=== PATIENT | female | born 1995 | race African-American/Black ===

== ENCOUNTER 2016-07-14 16:23 | Outpatient (CLI) | payer MEDICAID ==
[2016-07-14 17:05] LABS: APPEARANCE,URINE CLOUDY; BILIRUBIN,URINE NEGATIVE (NEGATIVE); GLUCOSE, URINE NEGATIVE (NEGATIVE); KETONES,URINE NEGATIVE (NEGATIVE); LEUKOCYTE ESTERASE,URINE LARGE (NEGATIVE); NITRITE,URINE NEGATIVE (NEGATIVE); PROTEIN,URINE NEGATIVE (NEGATIVE); URINE SPECIFIC GRAVITY 1.017; UROBILINOGEN,URINE NEGATIVE mg/dL (<2.0)
[2016-07-14 17:22] LABS: URINE BARBITURATES SCREEN NEGATIVE; URINE METHADONE SCREEN NEGATIVE; URINE PHENCYCLIDINE SCREEN NEGATIVE
[2016-07-14] MEDS ORDERED: FLUCONAZOLE 100 MG TABLET PO ONE (17:33)
[2016-07-14] MEDS ORDERED: FLUCONAZOLE 100 MG TABLET ONE (17:46)
[2016-07-14 20:55] LABS: CHLAM PCR NOT DETECTED (NOT DETECT)
--- NOTE | 2016-07-15 04:45 | L&D Current Admission ---
Current Admit Datetime Report Generated by [facility]: 07/15/2016 04:45 Chief Complaint: vaginal discharge with bright red spotting, sore vaginal area with swelling (07/14/2016 16:50:Margie Gomez RN)
--- NOTE | 2016-07-15 04:45 | L&D Discharge Summary ---
OB Discharge Summary Datetime Report Generated by CPN: 07/15/2016 04:45 DISCHARGE DIAGNOSIS Diagnosis/Symptoms: Other Diagnoses/Symptoms Other: Yeast infection Treatment/Procedures Other: rocephin 1gm Gestation: 30.3 Number of Babies in Womb: 1 Parity: 0 DIET/ACTIVITY/RESTRICTIONS Diet: Regular Activity: Normal Activity TEACHING/INSTRUCTIONS/REFERRALS Instructions Given To: patient and significant othwer Instructions Understood: Patient Verbalized Understanding; Support Person Verbalized Understanding Referrals: None Educational Materials- Other: yeast infection and kick counts DISCHARGE INFORMATION Discharged AMA: No Discharge Date/Time: 07/14/2016 17:55 Discharged To: Home Discharge Provider Name: Dr. Jurado Accompanied By: significant other Discharge Method: Ambulatory Condition: Stable FOLLOW UP INFORMATION Follow Up With: [facility] Follow Up On: As Scheduled Follow Up Phone Number: [facility] Department - Comments: Instructed patient to initiate OB care jaime. Patient states she [facility] on . GENERAL INSTR-CALL PROVIDER IF: Contractions: Contractions or cramps become more frequent than 8 in one hour or 4 in 20 minutes; Regular painful contractions every 5 minutes or less for one hour. Time your contractions from the beginning of one to the beginning of the next Pressure: Pressure in your vagina or lower abdomen that may feel like the baby is pushing down Period Like Cramps: Period-like cramps or low dull backache that may come and go Cramps/Diarrhea: Abdominal cramps that may be accompanied by diarrhea Gush of Fluid/Blood: Gush of fluid or blood from your vagina (it is normal to have spotting after vaginal exam or intercourse) Vaginal Discharge: Change in the type or amount of vaginal discharge Decreased Movement: Your baby is not moving as much as usual- 4 movements in 1 hour after drinking and resting on side Temperature: Temperature greater than 100.0(F) orally
--- NOTE | 2016-07-15 04:45 | L&D General Admission ---
General Admit Datetime Report Generated by [facility]: 07/15/2016 04:45 Baby, Number in Womb: 1 (07/14/2016 17:54:Margie Gomez RN) Height (in): 66 (07/14/2016 16:42:QS system process) Medication Allergies: No Known Allergies (07/14/2016) (07/14/2016 16:42:QS system process)
--- NOTE | 2016-07-15 04:45 | L&D Flow Sheet ---
LD Flowsheet Datetime Report Generated by CPN: 07/15/2016 04:45 Datetime: 07/14/2016 17:49 Monitor Mode: External; Palpation (Margie Gomez RN) Frequency (min): none (Margie Gomez, TA) Resting Tone (Palpate): Relaxed (Margie Gomez, TA) Contraction Comments: uterine irritability. patient denies feeling contractions (Margie Gomez, TA) Monitor Mode: External US (Margie Gomez, TA) FHR Baseline Rate : 135 (Margie Gomez RN) FHR Baseline Changes: No Baseline Change (Margie Gomez, RN) Variability: Moderate 6-25 bpm (Margie Gomez, RN) Decelerations: None (Margie Gomez, TA) Comments: appropriate for gestational age (Margie Gomez, TA) Datetime: 07/14/2016 17:48 Medication Comments: Diflucain 150 mg po (Margie Gomez RN) Datetime: 07/14/2016 17:35 Provider Notified (Name): Dr. Jurado provided orders to give patient Diflucain 150 mg po for yeast infection and discharge patient home to self care. (Margie Gmoez RN) Datetime: 07/14/2016 17:30 Monitor Mode: External; Palpation (Margie Gomez RN) Frequency (min): none (Margie Gomez RN) Resting Tone (Palpate): Relaxed (Margie Gomez RN) Contraction Comments: patient denies feeling contractions. no contractions noted (Magrie Gomez RN) Monitor Mode: External US (Margie Gomez RN) FHR Baseline Rate : 135 (Margie Gomez RN) FHR Baseline Changes: No Baseline Change (Margie Gomez RN) Variability: Moderate 6-25 bpm (Margie Gomez RN) Accelerations: 15X15 (Margie Gomez RN) Decelerations: None (Margie Gomez RN) Provider Reviewed Strip: Yes (Margie Gomez RN) Communication: RN at Bedside; Provider at Bedside (Margie Gomez RN) Provider Notified (Name): Dr. Jurado at bedside performing speculum exam (Margie Gomez RN) Datetime: 07/14/2016 17:20 Stage of : Antepartum (Margie Gomez RN) NBP Sys/Tracie/Mean (mmHg): 102 (QS system process) : 51 (QS system process) : 72 (QS system process) Pulse: 86 (QS system process) Respirations: 14 (Margie Gomez RN) LaborFlag: Antepartum (QS system process) Datetime: 07/14/2016 17:17 Communication: Call/Page Placed to Provider (Margie Gomez RN) Provider Notified (Name): Dr. Jurado (Margie Gomez RN) Notification Reason: Status Update; Status; Uterine Activity; Pain; Bleeding; Lab/Diagnostic Study (Margie Gomez RN) Communication Comments: Notified of OB history, chief complaint of vaginal soreness, swelling and scant bright red bleeding x1, urinalysis results, stable vital signs, and appropriate FHT for gestational age. Provider states she is on way to unit to assess patient (Margie Gomez RN) Datetime: 07/14/2016 17:02 Stage of : Antepartum (Margie Gomez RN) NBP Sys/Tracie/Mean (mmHg): 114 (QS system process) : 55 (QS system process) : 76 (QS system process) Pulse: 94 (QS system process) Respirations: 16 (Margie Gomez RN) LaborFlag: Antepartum (QS system process) Datetime: 07/14/2016 17:00 Monitor Mode: External; Palpation (Margie Gomez RN) Frequency (min): none (Margie Gomez RN) Resting Tone (Palpate): Relaxed (Margie Gomez RN) Contraction Comments: patient denies feeling contractions. no contractions noted (Margie Gomez RN) Monitor Mode: External US (Margie Gomez RN) FHR Baseline Rate : 140 (Margie Gomez RN) FHR Baseline Changes: No Baseline Change (Margie Gomez RN) Variability: Moderate 6-25 bpm (Margie Gomez RN) Accelerations: 15X15 (Margie Gomez RN) Decelerations: None (Margie Gomez RN) Comments: repors positive movement. Appropriate FHT strip for gestational age (Margie Gomez RN) Datetime: 07/14/2016 16:50 Monitor Interventions for UA: [place] Adjusted (Margie Gomez RN) Monitor Mode: External US (Margie Gomez RN) Monitor Interventions for FHR: Ultrasound Adjusted (Margie Gomez RN) Pain Scale: 2 (Margie Gomez RN) Pain Presence: Constant (Margie Gomez, TA) Pain Type: sore (Margie Gomez RN) Pain Location: vagina (Margie Gomez RN) Pain Goal: 1 (Margie Gomez RN) Pain Relief Measures: Comfort Measures (Margie Gomez, AT) Vaginal Bleeding: Scant (Margie Gomez, TA) Level of Consciousness: Fully Conscious (Margie Gomez RN) DTR's/Clonus: DTRs 2+; No Clonus (Margie Gomez RN) Headache: Denies (Margie Gomez RN) Breath Sounds, Left: Clear and Equal (Margie Gomez RN) Breath Sounds, Right: Clear and Equal (Margie Gomez, TA) Nausea/Vomiting: Denies (Margie Gomez RN) RUQ Epigastric Pain: Denies (Margie Gomez, TA) Oxygen Method: Room Air (Margie Gomez, RN) Patient Position/Activity: Right Lateral; Low Fowlers (Margie Gomez, RN) Comfort Measures: Family Support (Margie Gomez, RN) I/O Interventions: Clear Liquids Given (Margie Gomez, RN) Instructional Method: Verbal; Patient Instructed; Family/Support Person Instructed; Verbalized Understanding (Margie Gomez, RN) Plan of Care: Plan of Care Discussed (Margie Gomez, RN) Unit Routine: [place] to Room; Call Pedroza; Bed; Visiting Policy; Waiting Areas; Unit Personnel; Handwashing; Flu/Illness Precautions; Monitoring; IV Pumps; Safety/Fall Risk Prevention; Diet/Nutrition Services; Bathroom Privileges (Margie Gomez, TA) Pain Management: Pain Scale/Goals; Comfort Measures (Margie Gomez, TA) Related: Common Discomforts of ; Maternal Physical Changes; Maternal Emotional Changes; Nutrition; Hydration; Activity and Rest (Margie Gomez, TA) LaborFlag: Labor (QS system process) Datetime: 07/14/2016 16:46 Stage of : Labor (Margie Gomez, TA)
--- NOTE | 2016-07-15 04:45 | L&D Admission Assessment ---
LD ADM ASMT Datetime Report Generated by CPN: 07/15/2016 04:45 Assessment Type: Admission Assessment (07/14/2016 16:50:Margie Gomez RN) Weight (lb): 119 (07/14/2016 16:42:QS system process) Weight (kg): 54.1 (07/14/2016 16:42:QS system process) BMI: 19.2 (07/14/2016 16:42:QS system process) Pain Scale: 2 (07/14/2016 16:50:Margie Gomez RN) Pain Presence: Constant (07/14/2016 16:50:Margie Gomez RN) Pain Type: sore (07/14/2016 16:50:Margie Gomez RN) Pain Location: vagina (07/14/2016 16:50:Margie Gomez RN) Pain Goal: 1 (07/14/2016 16:50:Margie Gomez RN) Pain Related to Contraction: No (07/14/2016 16:50:Margie Gomez RN) Frequency (min): none (07/14/2016 17:49:Margie Gomez RN) Frequency (min): none (07/14/2016 17:30:Margie Gomez RN) Frequency (min): none (07/14/2016 17:00:Margie Gomez RN) Resting Tone [place]: Relaxed (07/14/2016 17:49:Margie Gomez RN) Resting Tone [place]: Relaxed (07/14/2016 17:30:Margie Gomez RN) Resting Tone [place]: Relaxed (07/14/2016 17:00:Margie Gomez RN) Contraction Comments: uterine irritability. patient denies feeling contractions (07/14/2016 17:49:Margie Gomez RN) Contraction Comments: patient denies feeling contractions. no contractions noted (07/14/2016 17:30:Margie Gomez RN) Contraction Comments: patient denies feeling contractions. no contractions noted (07/14/2016 17:00:Margie Gomez RN) Level of Consciousness: Fully Conscious (07/14/2016 16:50:Margie Gomez RN) DTR's/Clonus: DTRs 2+; No Clonus (07/14/2016 16:50:Margie Gomez RN) Headache: Denies (07/14/2016 16:50:Margie Gomez RN) Dizziness: No (07/14/2016 16:50:Margie Gomez RN) Blurred Vision: No (07/14/2016 16:50:Margie Gomez RN) Extremity Numbness/Tingling : None (07/14/2016 16:50:Margie Gomez RN) Extremity Movement: Full Range of Motion (07/14/2016 16:50:Margie Gomez RN) Heart Rhythm: Regular (07/14/2016 16:50:Margie Gomez RN) Nailbeds: [place] (07/14/2016 16:50:Margie Gomez RN) Capillary Refill: Less than 3 Seconds (07/14/2016 16:50:Margie Gomez RN) Lower Extremities Edema: None (07/14/2016 16:50:Margie Gomez RN) Lower Extremities Edema Degree: None (07/14/2016 16:50:Margie Gomez RN) Upper Extremities Edema: None (07/14/2016 16:50:Margie Gomez RN) Upper Extremities Edema Degree: None (07/14/2016 16:50:Margie Gomez RN) Facial Edema: None (07/14/2016 16:50:Margie Gomez RN) Alicia's Sign Left Leg: Negative (07/14/2016 16:50:Margie Gomez RN) Alicia's Sign Right Leg: Negative (07/14/2016 16:50:Margie Gomez RN) DVT Risk Age: Age less than 41 years (07/14/2016 16:50:Margie Gomez RN) DVT Risk BMI: BMI<31 (07/14/2016 16:50:Margie Gomez RN) DVT Risk Surgery: None Applicable (07/14/2016 16:50:Margie Gomez RN) DVT Risk Other: Women Only- or (<1 month) (07/14/2016 16:50:Margie Gomez RN) DVT Risk Total: 1 (07/14/2016 16:50:QS system process) DVT Risk Text: Low Risk (<10%) No specific measures, early ambulation (07/14/2016 16:50:QS system process) Respiratory Effort: Unlabored; Regular Rhythm (07/14/2016 16:50:Margie Gomez RN) Breath Sounds, Left: Clear and Equal (07/14/2016 16:50:Margie Gomez RN) Breath Sounds, Right: Clear and Equal (07/14/2016 16:50:Margie Gomez RN) Cough Productivity: None (07/14/2016 16:50:Margie Gomez RN) Nausea/Vomiting: Denies (07/14/2016 16:50:Margie Gomez RN) Bowel Sounds: Normoactive; All Quadrants (07/14/2016 16:50:Margie Gomez RN) RUQ Epigastric Pain: Denies (07/14/2016 16:50:Margie Gomez RN) Bowel Patterns: Soft, Formed Stool (07/14/2016 16:50:Margie Gomez RN) Hemorrhoids: None (07/14/2016 16:50:Margie Gomez RN) Diet Type: Regular diet (07/14/2016 16:50:Margie Gomez RN) Last Meal: 07/14/2016 15:15 (07/14/2016 16:50:Margie Gomez RN) Bladder: Nondistended (07/14/2016 16:50:Margie Gomez RN) Frequency of Urination: No (07/14/2016 16:50:Margie Gomez RN) Urination Burning: No (07/14/2016 16:50:Margie Gomez RN) CVA Tenderness: No (07/14/2016 16:50:Margie Gomez RN) Vaginal Bleeding: Scant (07/14/2016 16:50:Margie Gomez RN) Vaginal Discharge Amount: Small (07/14/2016 16:50:Margie Gomez RN) Vaginal Discharge Color: White (07/14/2016 16:50:Margie Gomez RN) Vaginal Discharge Odor: Non-Odorous (07/14/2016 16:50:Margie Gomez RN) Vaginal Discharge Character: Thin (07/14/2016 16:50:Margie Gomez RN) Skin Color: Normal for Race (07/14/2016 16:50:Margie Gomez RN) Skin Temperature: Warm (07/14/2016 16:50:Margie Gomez RN) Skin Moisture: Dry (07/14/2016 16:50:Margie Gomez RN) Cem Scale Sensory Perception: No Impairment- Responds to verbal commands. Has no sensory deficit which would limit ability to feel or voice pain or discomfort (07/14/2016 16:50:Margie Gomez RN) Cem Scale Moisture: Rarely Moist- Skin is usually dry. Linen only requires changing at routine intervals (07/14/2016 16:50:Margie Gomez RN) Cem Scale Activity: Walks Frequently- Walks outside the room at least twice a day and inside room at least every 2 hours during the day. (07/14/2016 16:50:Margie Gomez RN) Cem Scale Mobility: No Limitations- Makes major and frequent changes in position without assistance (07/14/2016 16:50:Margie Gomez RN) Cem Scale Nutrition: Excellent- Eats most of every meal. Never refuses a meal. Usually eats a total of 4 or more servings of meat and dairy products. Occasionally eats between meals. Does not require supplementation (07/14/2016 16:50:Margie Gomez RN) Cem Scale Friction and Shear: No Apparent Problem- Moves in bed and in chair independently and has sufficient muscle strength to lift up completely during move. Maintains good position in bed or chair at all times (07/14/2016 16:50:Margie Gomez RN) Cem Scale Total: 23 (07/14/2016 16:50:QS system process) Cem Scale Risk: No Risk of Pressure Ulcer Noted at this Time (07/14/2016 16:50:QS system process) Family Support: Significant Other supportive, at bedside frequently; Family supportive (07/14/2016 16:50:Margie Gomez RN) Emotional State: Calm/Relaxed (07/14/2016 16:50:Margie Gomez RN) Call [place] Within Reach: Yes (07/14/2016 16:50:Margie Gomez RN) Side Rails Up: Yes (07/14/2016 16:50:Margie Gomez RN) Bed Wheels Locked: Yes (07/14/2016 16:50:Margie Gomez RN) Arm Bands Present: Yes (07/14/2016 16:50:Margie Gomez RN) Isolation: [place] (07/14/2016 16:50:Margie Gomez RN) Fall Risk History of Falling: (0) No (07/14/2016 16:50:Margie Gomez RN) Fall Risk Secondary Diagnosis: (0) No (07/14/2016 16:50:Margie Gomez RN) Fall Risk Ambulatory Aid: (0) None/Bedrest/Wheelchair/Nurse Assist (07/14/2016 16:50:Margie Gomez RN) Fall Risk IV Therapy: (0) No (07/14/2016 16:50:Margie Gomez RN) Fall Risk Gait: (0) Normal/Bedrest/Immobile (07/14/2016 16:50:Margie Gomez RN) Fall Risk Mental Status: (0) Oriented to Own Ability (07/14/2016 16:50:Margie Gomez RN) Fall Risk Score: 0 (07/14/2016 16:50:QS system process) Fall Risk Score Definition: No Risk: No action required (07/14/2016 16:50:QS system process) Recent Exp Communicable Disease: No (07/14/2016 16:50:Margie Gomez RN) Cough or Fever: No (07/14/2016 16:50:Margie Gomez RN) Foreign Travel Past 10 Days: No (07/14/2016 16:50:Margie Gomez RN) Open Wounds or Sores: No (07/14/2016 16:50:Magrie Gomez RN) Prior Antibiotic Resistance Tx: No (07/14/2016 16:50:Margie Gomez RN) Cultures Obtained: Not Applicable (07/14/2016 16:50:Margie Gomez RN) Isolation Initiated: No (07/14/2016 16:50:Margie Gomze RN) Pt/Family Education: Not Applicable (07/14/2016 16:50:Margie Gomez RN) FHR Baseline Rate (bpm) Baby A: 135 (07/14/2016 17:49:Margie Gomez RN) FHR Baseline Rate (bpm) Baby A: 135 (07/14/2016 17:30:Margie Gomez RN) FHR Baseline Rate (bpm) Baby A: 140 (07/14/2016 17:00:Margie Gomez RN) Variability Baby A: Moderate 6-25 bpm (07/14/2016 17:49:Margie Gomez RN) Variability Baby A: Moderate 6-25 bpm (07/14/2016 17:30:Margie Gomez RN) Variability Baby A: Moderate 6-25 bpm (07/14/2016 17:00:Margie Gomez RN) Accelerations Baby A: 15X15 (07/14/2016 17:30:Margie Gomez RN) Accelerations Baby A: 15X15 (07/14/2016 17:00:Margie Gomez RN) Decelerations Baby A: None (07/14/2016 17:49:Margie Gomez RN) Decelerations Baby A: None (07/14/2016 17:30:Margie Gomez RN) Decelerations Baby A: None (07/14/2016 17:00:Margie Gomez RN) Assessment Flag: Admission Assessment (07/14/2016 16:50:QS system process)
--- NOTE | 2016-07-15 04:45 | Antepartum Discharge Summary ---
Antepartum DC Datetime Report Generated by CPN: 07/15/2016 04:45 Diet: Regular (07/14/2016 17:54:Margie Gomez RN) Activity: Normal Activity (07/14/2016 17:54:Margie Gomez RN) Instructions Given To: patient and significant othwer (07/14/2016 17:54:Margie Gomez RN) Instructions Understood: Patient Verbalized Understanding; Support Person Verbalized Understanding (07/14/2016 17:54:Margie Gomez RN) Referrals: None (07/14/2016 17:54:Margie Gomez RN) Educational Materials- Other: yeast infection and kick counts (07/14/2016 17:54:Margie Gomez RN) Discharged AMA: No (07/14/2016 17:54:Margie Gomez RN) Discharge Date/Time: 07/14/2016 17:55 (07/14/2016 17:54:Margie Gomez RN) Discharged To: Home (07/14/2016 17:54:Margie Gomez RN) Discharge Provider Name: Dr. Jurado (07/14/2016 17:54:Margie Gomez RN) Accompanied By: significant other (07/14/2016 17:54:Margie Gomez RN) Discharge Method: Ambulatory (07/14/2016 17:54:Margie Gomez RN) Condition: Stable (07/14/2016 17:54:Margie Gomez RN) Follow Up With: [facility] Department (07/14/2016 17:54:Margie Gomez RN) Follow Up On: As Scheduled (07/14/2016 17:54:Margie Gomez RN) Follow Up Phone Number: [facility] Department - (07/14/2016 17:54:Margie Gomez RN) Comments: Instructed patient to initiate OB care jaime. Patient states she [facility] an appointment [facility] on . (07/14/2016 17:54:Margie Gomez RN) Contractions: Contractions or cramps become more frequent than 8 in one hour or 4 in 20 minutes; Regular painful contractions every 5 minutes or less for one hour. Time your contractions from the beginning of one to the beginning of the next (07/14/2016 17:54:Margie Gomez RN) Pressure: Pressure in your vagina or lower abdomen that may feel like the baby is pushing down (07/14/2016 17:54:Margie Gomez RN) Period Like Cramps: Period-like cramps or low dull backache that may come and go (07/14/2016 17:54:Margie Gomez RN) Cramps/Diarrhea: Abdominal cramps that may be accompanied by diarrhea (07/14/2016 17:54:Margie Gomez RN) Gush of Fluid/Blood: Gush of fluid or blood from your vagina (it is normal to have spotting after vaginal exam or intercourse) (07/14/2016 17:54:Margie Gomez RN) Vaginal Discharge: Change in the type or amount of vaginal discharge (07/14/2016 17:54:Margie Gomez RN) Decreased Movement: Your baby is not moving as much as usual- 4 movements in 1 hour after drinking and resting on side (07/14/2016 17:54:Margie Gomez RN) Temperature: Temperature greater than 100.0(F) orally (07/14/2016 17:54:Margie Gomez RN) Hypertension Signs/Symptoms: Severe headache which is not relieved 30 minutes after taking Tylenol(Acetaminophen); Blurry vision or spots before your eyes; Severe heartburn or pain on the upper right side of your abdomen that is not relieved by an antacid; Increased swelling in your face, hands or feet (07/14/2016 17:54:Margie Gomez RN) Urinary Output: Decreased urinary output or dark colored urine (07/14/2016 17:54:Margie Gomez RN) N/V [place]/Crackers: Keep dry toast/crackers with you to [facility] on (07/14/2016 17:54:Margie Gomez RN) N/V Frequent Meals: Eat small frequent meals (07/14/2016 17:54:Margie Gomez RN) N/V Empty Stomach: Try to keep something in your stomach (don't let your stomach get empty) (07/14/2016 17:54:Margie Gomez RN) N/V Time Getting Up: Take your time getting up (07/14/2016 17:54:Margie Gomez RN) N/V Avoid Smells: Avoid smells that make you feel sick (07/14/2016 17:54:Margie Gomez RN) Travel Seatbelts: Wear seatbelts or safety/lap belts (07/14/2016 17:54:Margie Gomez RN) Travel Walk Frequently: Walk frequently, every 1-2 hours (07/14/2016 17:54:Margie Gomez RN) Travel Comfort Clothes: Wear clothing that does not constrict and comfortable shoes (07/14/2016 17:54:Margie Gomez RN) Travel Light Snack: Keep a light snack (e.g. dry crackers) with you at all times to prevent nausea (07/14/2016 17:54:Margie Gomez RN) Travel Hydration: Drink plenty of water, low sodium and noncaffeinated drinks (07/14/2016 17:54:Margie Gomez RN) Travel Medications: DO NOT take any medication that is not approved by your physician first (07/14/2016 17:54:Margie Gomez RN) Travel PN Records: Always keep a copy of your medical record with you just in case (07/14/2016 17:54:Margie Gomez RN) Edema Avoid Standing: Avoid standing for long periods, keep legs up when you can (07/14/2016 17:54:Margie Gomez RN) Edema Rest on Side: When resting, lie on your side (left is best) (07/14/2016 17:54:Margie Gomez RN) Edema Limit Sodium: Limit the amount of salty foods you eat (07/14/2016 17:54:Margie Gomez RN) Edema Support Hose: Try to wear support hose as much as possible (07/14/2016 17:54:Margie Gomez RN) Exercise Overheating: Avoid situations that would cause you to become overheated (07/14/2016 17:54:Margie Gomez RN) Exercise Weather: Exercise outdoors only if the weather is reasonable and not too hot (07/14/2016 17:54:Margie Gomez RN) Exercise Exertion: Do not over exert yourself when you exercise (07/14/2016 17:54:Margie Gomez RN) Exercise Hydration: Drink plenty of fluids, especially water (07/14/2016 17:54:Margie Gomez RN) Exercise Support: Wear good support hose, bra and shoes when exercising (07/14/2016 17:54:Margie Gomez RN) Varicose Veins Instructions: Do not stand for long periods of time (07/14/2016 17:54:Margie Gomez RN) Varicose Veins Elevate Sit: Try to keep your legs elevated when you are sitting (07/14/2016 17:54:Margie Gomez RN) Varicose Veins Elevate Lying: When lying down, keep your legs elevated (07/14/2016 17:54:Margie Gomez RN) Varicise Veins Non Binding: When wearing stockings or socks, make sure they are not too tight and bind your legs (07/14/2016 17:54:Margie Gomez RN) Varicose Veins Support: Wear support hose/stockings at all times (07/14/2016 17:54:Margie Gomez RN) Varicose Veins Periodic Move: If you have a job where you sit a lot, get up periodically and walk around (07/14/2016 17:54:Margie Gomez RN)
== END 2016-07-14 17:55 | disposition home or self-care (01) ==
LOC: LC 16:23
PROVIDERS: ATTEND Obstetrics & Gynecology
PROC: 4A1HXCZ Monitoring of Products of Conception, Cardiac Rate, External Approach (ICD-10-PCS; principal; 2016-07-14)
DX: O98.813 Other maternal infectious and parasitic diseases complicating pregnancy, third trimester (principal); Z3A.30 30 weeks gestation of pregnancy
CPT/HCPCS: 59899; 87210; 81001; 87491; 87591; G0479; J3490; 80307

== ENCOUNTER 2016-07-31 19:07 | Emergency (ER) | payer MEDICAID ==
--- NOTE | 2016-07-31 19:53 | ER Document Report ---
ED Dizziness/Weakness - General Chief Complaint: Fainting Stated Complaint: POSSIBLE SYNCOPE Mode of Arrival: Medic Information source: Patient Notes: Patient is a 21-year-old -Algerian female 33 weeks who presents to the ER via EMS today after a syncopal episode that occurred prior to arrival while she was sitting in a chair. Patient states that she had not eaten since this morning and started to feel lightheaded, sweaty, was wearing a leather jacket inside the house because she was initially cool and then it was witnessed that she passed out in the chair for approximately 20 seconds. They deny that she had any overall shaking. She came to and immediately realized where she was, had no nausea, vomiting, tiredness, headache. She denies any abdominal cramping, vaginal bleeding, discharge. She states that she feels much better after eating Pringles. TRAVEL OUTSIDE OF THE [place] IN LAST 30 DAYS: No - Related Data Allergies/Adverse Reactions: No Known Allergies Allergy (Verified 07/14/16 16:41) Past Medical History - General Information source: Patient - Social History Smoking Status: Never Smoker Family History: Reviewed & Not Pertinent - Immunizations Hx Diphtheria, Pertussis, Tetanus Vaccination: Yes Review of Systems - Review of Systems Constitutional: No symptoms reported EENT: No symptoms reported Cardiovascular: No symptoms reported Respiratory: No symptoms reported Gastrointestinal: No symptoms reported Genitourinary: No symptoms reported Female Genitourinary: See HPI Musculoskeletal: No symptoms reported Skin: No symptoms reported Hematologic/Lymphatic: No symptoms reported Neurological/Psychological: See HPI Physical Exam - Vital signs Vitals: Temp Pulse Resp BP Pulse Ox 98.2 F 65 18 105/66 100 07/31/16 19:23 07/31/16 19:23 07/31/16 19:23 07/31/16 19:23 07/31/16 19:23 - Notes Notes: PHYSICAL EXAMINATION: GENERAL: Well-appearing, smiling and in no acute distress. HEAD: Atraumatic, normocephalic. EYES: Pupils equal round and reactive to light, extraocular movements intact, sclera anicteric, conjunctiva are normal. NECK: Normal range of motion, supple without lymphadenopathy LUNGS: CTAB and equal. No wheezes rales or rhonchi. HEART: Regular rate and rhythm without murmurs ABDOMEN: Soft, gravid, no tenderness. No guarding, no rebound BACK: no vertebral tenderness, normal ROM GI/: no CVA tenderness EXTREMITIES: Normal range of motion, no pitting edema. No cyanosis. NEUROLOGICAL: Cranial nerves grossly intact. Normal sensory/motor exams. PSYCH: Normal mood, normal affect. SKIN: Warm, Dry, normal turgor, no rashes or lesions noted Course - Re-evaluation Re-evalutation: 07/31/16 21:08 Patient has not been taking vitamins because she says that they smelled "like dog food." She is feeling much better, heart tones were 133bpm and she is complaining of no abdominal tenderness or vaginal bleeding, discharge. Her EKG is normal sinus rhythm with a rate of 69 bpm with no evidence of ischemia or abnormality.This case was consulted with Dr. Hernandez who agrees with assessment and plan. 08/01/16 07:17 - Vital Signs Vital signs: Temp Pulse Resp BP Pulse Ox 97.8 F 70 16 129/62 H 100 07/31/16 21:42 07/31/16 21:42 07/31/16 21:42 07/31/16 21:42 07/31/16 21:42 - Laboratory Result Diagrams: 07/31/16 20:06 07/31/16 20:06 Laboratory results interpreted by me: 07/31/16 07/31/16 20:06 20:06 Hgb 10.8 L Hct 34.4 L MCH 25.1 L MCHC 31.5 L RDW 14.7 H BUN 6 L Glucose 111 H Alkaline Phosphatase 155 H Discharge - Discharge Clinical Impression: Syncope Qualifiers: Syncope type: unspecified Qualified Code(s): R55 - Syncope and collapse Qualifiers: Weeks of gestation: 33 weeks Qualified Code(s): Z3A.33 - 33 weeks gestation of Condition: Stable Disposition: HOME, SELF-CARE Additional Instructions: Please start taking her vitamins again. Return immediately for any new or worsening symptoms. Follow up with primary care provider, call tomorrow to make followup appointment. Prescriptions: Pnv with Ca,No.72/Iron,Carb/FA [ Plus Iron Tablet] 1 each PO DAILY #30 tablet Forms: Return to Work Referrals: KEM VACA MD [Primary Care Provider] - Follow up as needed
[2016-07-31 20:35] LABS: ABSOLUTE EOSINOPHILS # (AUTO) 0.1 10^3/uL (0.0-0.6); ABSOLUTE LYMPHOCYTES (AUTO) 1.9 10^3/uL (0.5-4.7); ABSOLUTE MONOCYTES (AUTO) 0.4 10^3/uL (0.1-1.4); ABSOLUTE NEUT (AUTO) 6.3 10^3/uL (1.7-8.2); BASOPHILS % (AUTO) 0.3 % (0-2); HEMATOCRIT 34.4 % (36.0-47.0); HEMOGLOBIN 10.8 g/dL (12.0-15.5); LYMPHOCYTES % (AUTO) 21.2 % (13-45); MEAN CORPUSCULAR HEMOGLOBIN 25.1 pg (27.0-33.4); MEAN CORPUSCULAR HGB CONC 31.5 g/dL (32.0-36.0); MEAN CORPUSCULAR VOLUME 80 fl (80-97); MONOCYTES % (AUTO) 4.9 % (3-13); RED BLOOD COUNT 4.31 10^6/uL (3.72-5.28); RED CELL DISTRIBUTION WIDTH 14.7 % (11.5-14.0); SEGMENTED NEUTROPHILS % (AUTO) 72.6 % (42-78); WHITE BLOOD COUNT 8.7 10^3/uL (4.0-10.5)
[2016-07-31 20:46] LABS: APPEARANCE,URINE SLIGHTLY-CLOUDY; BILIRUBIN,URINE NEGATIVE (NEGATIVE); GLUCOSE, URINE NEGATIVE (NEGATIVE); KETONES,URINE NEGATIVE (NEGATIVE); LEUKOCYTE ESTERASE,URINE NEGATIVE (NEGATIVE); NITRITE,URINE NEGATIVE (NEGATIVE); PROTEIN,URINE NEGATIVE (NEGATIVE); URINE SPECIFIC GRAVITY 1.006; UROBILINOGEN,URINE NEGATIVE mg/dL (<2.0)
[2016-07-31 20:57] LABS: ALANINE AMINOTRANSFERASE 19 U/L (9-52); ALBUMIN 4.1 g/dL (3.5-5.0); ALKALINE PHOSPHATASE 155 U/L (38-126); ANION GAP 11 (5-19); ASPARTATE AMINO TRANSFERASE 20 U/L (14-36); BILIRUBIN,TOTAL 0.4 mg/dL (0.2-1.3); BLOOD UREA NITROGEN 6 mg/dL (7-20); CALCIUM 9.6 mg/dL (8.4-10.2); CARBON DIOXIDE 23 mmol/L (22-30); CHLORIDE 105 mmol/L (98-107); CREATININE RESULT 0.68 mg/dL (0.52-1.25); GLUCOSE 111 mg/dL (75-110); POTASSIUM 4.2 mmol/L (3.6-5.0); TOTAL PROTEIN 7.5 g/dL (6.3-8.2)
[2016-07-31] MEDS ORDERED: PRENATAL VITAMIN W-O CA NO5/FE FUMARATE/FA CAPSULE PO ONE (21:01)
[2016-07-31 21:44] VITALS: BP 129/62
--- NOTE | 2016-08-01 08:05 | EKG REPORT ---
SEVERITY:- ABNORMAL ECG - SINUS RHYTHM NONSPECIFIC T ABNORMALITIES, ANTERIOR LEADS : Confirmed by: Rene Quarles MD 01-Aug-2016 08:05:23
== END 2016-07-31 21:42 | disposition home or self-care (01) ==
LOC: ER 19:07
DX: O26.893 Other specified pregnancy related conditions, third trimester (principal); R55 Syncope and collapse; Z3A.33 33 weeks gestation of pregnancy
CPT/HCPCS: 36415; 80053; 81001; 85025; 93005; 93010; 99284

== ENCOUNTER 2016-09-13 09:44 | Outpatient (CLI) | payer MEDICAID ==
[2016-09-13 11:02] LABS: APPEARANCE,URINE SLIGHTLY-CLOUDY; BILIRUBIN,URINE NEGATIVE (NEGATIVE); GLUCOSE, URINE NEGATIVE (NEGATIVE); KETONES,URINE NEGATIVE (NEGATIVE); LEUKOCYTE ESTERASE,URINE NEGATIVE (NEGATIVE); NITRITE,URINE NEGATIVE (NEGATIVE); PROTEIN,URINE NEGATIVE (NEGATIVE)
[2016-09-13 11:21] LABS: URINE BARBITURATES SCREEN NEGATIVE; URINE METHADONE SCREEN NEGATIVE; URINE OPIATES LOW NEGATIVE; URINE PHENCYCLIDINE SCREEN NEGATIVE
[2016-09-13] MEDS ORDERED: HYDROXYZINE PAMOATE 50 MG CAPSULE ONE (11:46)
--- NOTE | 2016-09-13 12:01 | L&D Flow Sheet ---
LD Flowsheet Datetime Report Generated by CPN: 09/13/2016 12:00 Datetime: 09/13/2016 10:38 Dilatation (cm): 0.0 (Jess Magaly, RN) Effacement (%): 0 (Jess Magaly, RN) Station: -3 (Jess Magaly, RN) Exam by: CKenneth Wells, SN (Jess Magaly, RN) Datetime: 09/13/2016 10:10 NBP Sys/Tracie/Mean (mmHg): 128 (QS system process) : 68 (QS system process) : 89 (QS system process) Pulse: 84 (QS system process) LaborFlag: Antepartum (QS system process) Datetime: 09/13/2016 10:01 Monitor Interventions for UA: [place] Adjusted (SN Mandie) Pain Scale: 4 (SN Mandie) Pain Presence: Intermittent (SN Mandie) Pain Location: Abdomen; Back (SN Mandie) Level of Consciousness: Fully Conscious (SN Mandie) DTR's/Clonus: DTRs 1+ (SN Mandie) Headache: Denies (SN Mandie) Breath Sounds, Left: Clear and Equal (SN Mandie) Breath Sounds, Right: Clear and Equal (SN Mandie) Nausea/Vomiting: Denies (SN Mandie) RUQ Epigastric Pain: Denies (SN Mandie) LaborFlag: Antepartum (QS system process)
[2016-09-13] MEDS ORDERED: OXYCODONE-ACETAMINOPHEN 5-325 MG TABLET ONE (13:47)
--- NOTE | 2016-09-13 14:01 | L&D Flow Sheet ---
LD Flowsheet Datetime Report Generated by CPN: 09/13/2016 14:00 Datetime: 09/13/2016 13:50 Communication Comments: patient refused second teb of percocet. Patient only took 1 tab. (Jess Mckenzie RN) Datetime: 09/13/2016 13:47 Notification Reason: Status Update; Status; Labor Status; Membrane Status; Uterine Activity; Pain (Jess Mckenzie RN) Communication Comments: call placed to Dr. Jurado. Orders received to D/C home and give percocet 2 tabs PO for pain (Jess Magaly, RN) Datetime: 09/13/2016 13:45 Monitor Mode: External (Jess Magaly, RN) Frequency (min): 3-7 (Jess Magaly, RN) Quality: Mild (Jess Magaly, RN) Duration (sec): 60-100 (Jess Magaly, RN) Resting Tone (Palpate): Relaxed (Jess Magaly, RN) Monitor Mode: External US (Jess Magaly, RN) FHR Baseline Rate : 135 (Jess Magaly, RN) Variability: Moderate 6-25 bpm (Jess Magaly, RN) Accelerations: 15X15 (Jess Magaly, RN) Decelerations: None (Jess Magaly, RN) Datetime: 09/13/2016 13:40 NBP Sys/Tracie/Mean (mmHg): 119 (QS system process) : 60 (QS system process) : 83 (QS system process) Pulse: 73 (QS system process) LaborFlag: OB Triage (QS system process) Datetime: 09/13/2016 13:37 Dilatation (cm): 1.0 (Jess Magaly, RN) Effacement (%): 50 (Jess Magaly, RN) Station: -2 (Jess Magaly, RN) Exam by: Saul Mckenzie RN (Jess Magaly, RN) Datetime: 09/13/2016 13:15 Monitor Mode: External; Palpation (Jess Magaly, RN) Frequency (min): 3-6 (Jess Magaly, RN) Quality: Mild (Jess Magaly, RN) Duration (sec): 60-100 (Jess Magaly, RN) Resting Tone (Palpate): Relaxed (Jess Magaly, RN) Monitor Mode: External US (Jess Magaly, RN) FHR Baseline Rate : 135 (Jess Magaly, RN) Variability: Moderate 6-25 bpm (Jess Magaly, RN) Accelerations: 15X15 (Jess Magaly, RN) Decelerations: None (Jess Magaly, RN) Datetime: 09/13/2016 12:52 NBP Sys/Tracie/Mean (mmHg): 119 (QS system process) : 76 (QS system process) : 92 (QS system process) Pulse: 76 (QS system process) LaborFlag: OB Triage (QS system process) Datetime: 09/13/2016 12:45 Monitor Mode: External; Palpation (Jess Magaly, RN) Frequency (min): 5-6 (Jess Magaly, RN) Quality: Mild (Jess Magaly, RN) Duration (sec): 60-120 (Jess Magaly, RN) Resting Tone (Palpate): Relaxed (Jess Magaly, RN) Contraction Comments: irritability noted (Jess Magaly, RN) Monitor Mode: External US (Jess Magaly, RN) FHR Baseline Rate : 135 (Jess Magaly, RN) Variability: Moderate 6-25 bpm (Jess Magaly, RN) Accelerations: 15X15 (Jess Magaly, RN) Decelerations: None (Jess Magaly, RN) Datetime: 09/13/2016 12:22 NBP Sys/Tracie/Mean (mmHg): 134 (QS system process) : 57 (QS system process) : 82 (QS system process) Pulse: 77 (QS system process) LaborFlag: OB Triage (QS system process) Datetime: 09/13/2016 12:20 Dilatation (cm): 1.0 (Jess Mckenzie RN) Effacement (%): 50 (eJss Mckenzie RN) Station: -2 (Jess Mckenzie RN) Exam by: Saul Mckenzie RN (Jess Mckenzie RN)
== END 2016-09-13 13:58 | disposition home or self-care (01) ==
LOC: LC 09:44
PROVIDERS: ATTEND Obstetrics & Gynecology
PROC: 4A1HXCZ Monitoring of Products of Conception, Cardiac Rate, External Approach (ICD-10-PCS; principal; 2016-09-13)
DX: O47.1 False labor at or after 37 completed weeks of gestation (principal); Z3A.39 39 weeks gestation of pregnancy
CPT/HCPCS: 59025; 81005; 80307; J3490

== ENCOUNTER 2016-09-13 20:46 | Inpatient (IN) | payer MEDICAID ==
[2016-09-13] MEDS ORDERED: MISOPROSTOL 0.2 MG TABLET ONE (20:53)
[2016-09-13] MEDS ORDERED: OXYTOCIN 10 UNIT/ML VIAL ONE (20:53)
[2016-09-13] MEDS ORDERED: LIDOCAINE 1% INJ-PF (10 MG/ML) 30 ML SDV ONE (20:53)
[2016-09-13] MEDS ORDERED: OXYTOCIN/NORMAL SALINE 20 UNIT/1,000 ML RTUINJ ONE (21:05)
[2016-09-13] MEDS ORDERED: RINGERS SOLUTION,LACTATED 1,000 ML IV PRN (21:25)
[2016-09-13] MEDS ORDERED: DIPH/PERTUSS(ACELL)/TETANUS VAC/PF 0.5 ML SYR (>=10YO) IM PRN (21:38)
[2016-09-13] MEDS ORDERED: BENZOCAINE/MENTHOL AEROSOL SPRAY 56 ML TOP PRN (21:38)
[2016-09-13] MEDS ORDERED: OXYTOCIN/NORMAL SALINE 20 UNIT/1,000 ML RTUINJ IV PRN (21:38)
[2016-09-13] MEDS ORDERED: MEASLES,MUMPS&RUBELLA VACC/PF 0.5 ML VIAL SUBCUT PRN (21:38)
[2016-09-13] MEDS ORDERED: ZOLPIDEM TARTRATE 5 MG TABLET PO PRN (21:38)
[2016-09-13] MEDS ORDERED: DIBUCAINE 1% OINTMENT 28 GM TP PRN (21:38)
[2016-09-13] MEDS ORDERED: ACETAMINOPHEN WITH CODEINE #3 TABLET PO PRN ×2 (21:38)
[2016-09-13 21:52] LABS: ABSOLUTE BASOPHILS # (AUTO) 0.1 10^3/uL (0.0-0.2); ABSOLUTE LYMPHOCYTES (AUTO) 1.2 10^3/uL (0.5-4.7); ABSOLUTE MONOCYTES (AUTO) 0.7 10^3/uL (0.1-1.4); ABSOLUTE NEUT (AUTO) 13.3 10^3/uL (1.7-8.2); BASOPHILS % (AUTO) 0.4 % (0-2); EOSINOPHILS % (AUTO) 0.2 % (0-6); HEMOGLOBIN 10.3 g/dL (12.0-15.5); HGB HCT DIFFERENCE -1.1; LYMPHOCYTES % (AUTO) 8.1 % (13-45); MEAN CORPUSCULAR HEMOGLOBIN 24.8 pg (27.0-33.4); MEAN CORPUSCULAR HGB CONC 32.2 g/dL (32.0-36.0); MEAN CORPUSCULAR VOLUME 77 fl (80-97); MONOCYTES % (AUTO) 4.8 % (3-13); RED BLOOD COUNT 4.16 10^6/uL (3.72-5.28); RED CELL DISTRIBUTION WIDTH 15.3 % (11.5-14.0); SEGMENTED NEUTROPHILS % (AUTO) 86.5 % (42-78); WHITE BLOOD COUNT 15.3 10^3/uL (4.0-10.5)
--- NOTE | 2016-09-13 22:01 | L&D Flow Sheet ---
LD Flowsheet Datetime Report Generated by CPN: 09/13/2016 22:00 Datetime: 09/13/2016 21:52 NBP Sys/Tracie/Mean (mmHg): 210 (QS system process) : 106 (QS system process) : 150 (QS system process) Pulse: 160 (QS system process) LaborFlag: OB Triage (QS system process) Datetime: 09/13/2016 21:22 NBP Sys/Tracie/Mean (mmHg): 126 (QS system process) : 76 (QS system process) : 94 (QS system process) Pulse: 100 (QS system process) LaborFlag: OB Triage (QS system process) Datetime: 09/13/2016 21:15 Temperature (F): 97.6 (Edie Rossi) Temperature (C): 36.4 (QS system process) Temperature Route: Oral (Edie Rossi) Pain Scale: 2 (Edie Rossi) Pain Presence: Constant (Edie Rossi) Pain Type: Burning (Edie Rossi) Pain Location: Perineum (Edie Rossi) Pain Goal: 0 (Edie Rossi) LaborFlag: OB Triage (QS system process) Datetime: 09/13/2016 20:59 Comments: heart rate btween 70-90's. Instructed the patient to push with contractions. nursery at the bedside for delivery. (Edie Rossi) Oxygen Amount : 10 (Edie Rossi) Oxygen Method: Non-Rebreather (Edie Rossi) Patient Care Comments: rn remains at the bedisde (Edie Rossi) Datetime: 09/13/2016 20:53 Comments: vaginal delivery of baby boy (Edie Rossi) Datetime: 09/13/2016 20:50 Membrane Status: Ruptured (Erika Tee RN) Membranes Rupture Method: Artificial (Erika Tee RN) Amniotic Fluid Color: Clear (Erika Tee RN) Amniotic Fluid Amount: Small (Erika Tee RN) Amniotic Fluid Odor: Normal (Erika Tee RN) Datetime: 09/13/2016 20:48 Dilatation (cm): 10.0 (Erika Tee RN) Effacement (%): 100 (Erika Tee RN) Station: 3 (Erika Tee RN) Exam by: Lynette Rossi RN (Erika Tee RN) Membrane Status: Bulging (Erika Tee RN) Communication Comments: Dr. Jurado notified of patient coming via EMS and stating feeling the need to push immediately. Provider en route to unit. (Mirta Davis RN) Datetime: 09/13/2016 20:45 Patient Care Comments: patient to the unit for labor check (Edie Rossi)
--- NOTE | 2016-09-13 23:20 | Delivery Summary ---
Del Sum A-C Datetime Report Generated by CPN: 09/13/2016 23:20 ADMISSION DATA Chief Complaint: Uterine Contractions; Suspected Ruptured Membranes; Vaginal Bleeding Indication for Induction: Not Applicable Admission Impression: Term, Intrauterine ; Active Labor; Ruptured Membranes Admit Provider Comments: pt delivered by nurse controlled delivery within 1 minute of arrival to unit DELIVERY PERSONNEL Delivery Doctor:: Lina Jurado MD Labor and Delivery Nurse:: Edie Rossi RNaccount maintenance representative Nurse:: Erika Tee RN Bandage Winding Machine Operator/ASSISTANT SUPERINTENDENT FOR CURRICULUM: Arcelia Fofana, ST MATERNAL INFORMATION Delivery Anesthesia: None Medications After Delivery: Pitocin Bolus-Please Comment Meds After Delivery Comment: pitocin 20 units in 1000 ml ns Maternal Complications: Precipitous Labor (<3hrs) LABOR SUMMARY EDC: 09/19/2016 00:00 No. Babies in Womb: 1 Attempted: No Labor Anesthesia: None LABOR INFORMATION Reason for Induction: Not Applicable Complete Dilatation: 09/13/2016 20:48 Oxytocin: N/A Group B Beta Strep: positive Steroids Given: None Reason Steroids Not Administered: Not Applicable MEMBRANES Membranes Rupture Method: Artificial Rupture of Membranes: 09/13/2016 20:50 Length of Rupture (hr): 0.05 Amniotic Fluid Color: Clear Amniotic Fluid Amount: Small Amniotic Fluid Odor: Normal STAGES OF LABOR Stage 2 hr: 0 Stage 2 min: 5 Stage 3 hr: 0 Stage 3 min: 9 VAGINAL DELIVERY Episiotomy: None Laceration Extension: Second Degree Laceration Type: Perineal Laceration Repair: Yes Laceration Repair Note: 2-0 chromic Sponge Count Correct: N/A Sharps Count Correct: N/A CSECTION DELIVERY CSection Incision: N/A BABY A INFORMATION Delivery Date/Time: 09/13/2016 20:53 Method of Delivery: Vaginal Born in Route : No : N/A Forceps: N/A Vacuum Extraction: N/A Shoulder Dystocia : No PRESENTATION/POSITION BABY A Presentation: Cephalic Cephalic Presentation: Vertex Vertex Position: Right Occipital Anterior Breech Presentation: N/A PLACENTA INFORMATION BABY A Placenta Delivery Time : 09/13/2016 21:02 Placenta Method of Delivery: Spontaneous Placenta Status: Delivered SCORES BABY A Heart Rate 1 min: >100 bpm Resp Effort 1 min: Good Cry Reflex Irritability 1 min: Cough or Sneeze or Pulls Away Muscle Tone 1 min: Active Motion Color 1 min: Blue/Pale SCORE 1 MIN: 8 Heart Rate 5 min: >100 bpm Resp Effort 5 min: Good Cry Reflex Irritability 5 min: Cough or Sneeze or Pulls Away Muscle Tone 5 min: Active Motion Color 5 min: Body [place], Extremities Blue SCORE 5 MIN: 9 INFORMATION BABY A Gestational Age at Delivery: 39.1 Gestational Status: Full Term- 39- 40.6 Weeks Outcome : Liveborn Infant Condition : Stable Infant Sex: Male CORD INFORMATION BABY A No. Cord Vessels: 3 Nuchal Cord : Around Neck x1, Tight Cord Blood Taken: Yes-For Eval (Mom's Blood Type - or O+) Infant Suction: Mouth; Nose ASSESSMENT BABY A Skin to Skin: Yes Skin to Skin Time (min): 30 BABY B INFORMATION : N/A SIGNATURES Signature: with User ID: Sonya
--- NOTE | 2016-09-13 23:40 | Admission Physical ---
Datetime Report Generated by CPN: 09/13/2016 23:39 CURRENT ADMISSION Chief Complaint: Uterine Contractions; Suspected Ruptured Membranes; Vaginal Bleeding Chief Complaint: Vaginal Bleeding; Signs/Symptoms UTI Indication for Induction: Not Applicable Admit Plan: Admit to Unit; Initiate Labor Protocol Admit Plan: Discharge Home ALLERGIES Medication Allergies: No Medication Allergies: No Known Allergies (07/14/2016) Medication Allergies: No Known Allergies (02/18/2016) Latex: No Latex Allergies Food Allergies: none Environmental Allergies: none OBSTETRICAL HISTORY EDC: 09/19/2016 00:00 : 1 Para: 0 Para: 0 Livin Gestational Diabetes: No Rh Sensitization: No Incompetent Cervix: No JAYLYN: No Infertility: No ART Treatment: No Uterine Anomaly: No IUGR: No Hx Previous C/S: No Macrosomia: No Hx Loss/Stillborn: No PIH: No Hx : No Placenta Previa/Abruption: No Depression/PP Depression: No PTL/PROM: No Post Hemorrhage: No Current Procedures: Ultrasound Obstetrical History Comments: current 2015-anemia SEE RECORDS Alcohol: No Marijuana : No Cocaine: No Other Illicit Drugs: No MEDICAL HISTORY Diabetes: No Blood Transfusion: No Pulmonary Disease (Asthma, TB): No Breast Disease: No Hypertension: No 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[employer] Surgery: No Heart Disease: No Hosp/Surgery: No Autoimmune Disorder: No Anesthetic Complications: No Kidney Disease: No Abnormal Pap Smear: No Neuro/Epilepsy: No Psychiatric Disorders: No Other Medical Diseases: No Hepatitis/Liver Disease: No Significant Family History: No Varicosities/Phlebitis: No Trauma/Violence : No Thyroid Dysfunction: No Medical History Comments: anemia possible heart murmur/cardiac condition - several syncopal episodes INFECTIOUS HISTORY Gonorrhea: No Genital Herpes: No Chlamydia: Yes Tuberculosis: No Syphilis: No Hepatitis: No HIV/AIDS Exposure: No Rash or Viral Illness: No HPV: No Infectious History Comments: chlamydia-2012 PHYSICAL EXAM General: Normal General: Normal HEENT: Normal HEENT: Normal Neurologic: Normal Neurologic: Normal Thyroid: Normal Thyroid: Normal Heart: Normal Heart: Normal Lungs: Normal Lungs: Normal Breast: Normal Breast: Normal Back: Normal Back: Normal Abdomen: Normal Abdomen: Normal Genitourinary Exam: Normal Genitourinary Exam: Normal Extremities: Normal Extremities: Normal DTRs: Normal DTRs: Normal Pelvic Type: Adequate Pelvic Type: Adequate Physical Exam Comments: no cva tenderness UA c/w uti no vaginal blood on SVE Vital Signs: Reviewed Vital Signs: Reviewed VAGINAL EXAM Dilatation: 10 Dilatation: 0 Effacement: 100 Effacement: 0 Station: 4 Station: -2 MEMBRANES Membranes: Ruptured Amniotic Fluid Color: Clear FETUS A EGA: 39.1 EGA: 30.1 Monitoring: External US FHR- Baseline: 80 Decelerations: Variable FHR Category: Category I Estimated Weight (gm): 3400 Presentation: Vertex Admit Comment: pt delivered by nurse controlled delivery within 1 minute of arrival to unit Admit Comment: UTI-rocephin 1 gm im now then d/c home on macrobid 1 po bid for 10 days increase fluids, pyelo and ptl precautions PLANS FOR LABOR AND DELIVERY Labor and Delivery: None Pain Management: Medications; Epidural Feeding Preference: Breast Circumcision: Yes INFORMED CONSENT Signature: with User ID: Sonya Signature: with User ID: [email or web address] : with User ID: [email or web address]
[2016-09-14] MEDS: IBUPROFEN 800 MG TABLET PO SCH ×2 (05:20→13:45)
--- NOTE | 2016-09-14 07:00 | L&D Flow Sheet ---
LD Flowsheet Datetime Report Generated by CPN: 09/14/2016 07:00 Datetime: 09/13/2016 22:22 NBP Sys/Tracie/Mean (mmHg): 114 (QS system process) : 66 (QS system process) : 85 (QS system process) Pulse: 93 (QS system process) Datetime: 09/13/2016 22:08 NBP Sys/Tracie/Mean (mmHg): 119 (QS system process) : 58 (QS system process) : 84 (QS system process) Pulse: 99 (QS system process) Datetime: 09/13/2016 21:52 NBP Sys/Tracie/Mean (mmHg): 210 (Annotations: patient had blood pressure cuff on with arm bent not accurate pressure repeat pressure within normal range.) (Edie Rossi) : 106 (QS system process) : 150 (QS system process) Pulse: 160 (QS system process) Datetime: 09/13/2016 21:22 NBP Sys/Tracie/Mean (mmHg): 126 (QS system process) : 76 (QS system process) : 94 (QS system process) Pulse: 100 (QS system process) Datetime: 09/13/2016 21:15 Temperature (F): 97.6 (Edie Rossi) Temperature (C): 36.4 (QS system process) Temperature Route: Oral (Edie Rossi) Pain Scale: 2 (Edie Rossi) Pain Presence: Constant (Edie Rossi) Pain Type: Burning (Edie Rossi) Pain Location: Perineum (Edie Rossi) Pain Goal: 0 (Edie Rossi) Datetime: 09/13/2016 20:59 Comments: heart rate btween 70-90's. Instructed the patient to push with contractions. nursery at the bedside for delivery. (Edie Rossi) Oxygen Amount : 10 (Edie Rossi) Oxygen Method: Non-Rebreather (Edie Rosis) Patient Care Comments: rn remains at the bedisde (Edie Rossi) Datetime: 09/13/2016 20:53 Stage of : Recovery (Edie Rossi) Comments: vaginal delivery of baby boy (Edie Rossi) Datetime: 09/13/2016 20:50 Membrane Status: Ruptured (Erika Tee RN) Membranes Rupture Method: Artificial (Erika Tee RN) Amniotic Fluid Color: Clear (Erika Tee RN) Amniotic Fluid Amount: Small (Erika Tee RN) Amniotic Fluid Odor: Normal (Erika Tee RN) Datetime: 09/13/2016 20:48 Dilatation (cm): 10.0 (Erika Tee RN) Effacement (%): 100 (Erika Tee RN) Station: 3 (Erika Tee RN) Exam by: Lynette Rossi RN (Erika Tee RN) Membrane Status: Bulging (Erika Tee RN) Communication Comments: Dr. Jurado notified of patient coming via EMS and stating feeling the need to push immediately. Provider en route to unit. (Mirta Davis RN) Datetime: 09/13/2016 20:45 Patient Care Comments: patient to the unit for labor check (Edie Rossi)
[2016-09-14 07:36] LABS: HEMATOCRIT 29.9 % (36.0-47.0); HEMOGLOBIN 9.9 g/dL (12.0-15.5); HGB HCT DIFFERENCE -0.2; MEAN CORPUSCULAR HEMOGLOBIN 25.1 pg (27.0-33.4); MEAN CORPUSCULAR VOLUME 76 fl (80-97); RED BLOOD COUNT 3.92 10^6/uL (3.72-5.28); RED CELL DISTRIBUTION WIDTH 15.2 % (11.5-14.0); WHITE BLOOD COUNT 17.7 10^3/uL (4.0-10.5)
[2016-09-14] MEDS: PRENATAL VITAMIN W-O CA NO5/FE FUMARATE/FA CAPSULE PO SCH (09:19)
[2016-09-14] MEDS: SENNOSIDES/DOCUSATE 8.6-50 MG 1 EACH TABLET PO SCH (09:20)
[2016-09-14] MEDS: FERROUS SULFATE 325 MG TABLET PO SCH ×2 (09:20→17:50)
[2016-09-14] MEDS: DOCUSATE SODIUM 100 MG CAPSULE PO SCH ×2 (09:20→17:50)
--- NOTE | 2016-09-14 09:38 | PDOC PROGRESS REPORT ---
Subjective-OB Subjective: Post Delivery Day: 1 21 year old. Denies any needs at this time, states lochia is stable, pain well controlled, voiding without difficulty Physical Exam (OB) Vital Signs: Temp Pulse Resp BP Pulse Ox 98.2 F 77 16 113/61 100 09/14/16 08:31 09/14/16 08:31 09/14/16 08:31 09/14/16 08:31 09/14/16 08:31 - Lochia Lochia Amount: Scant < 10 ml Lochia Color: Rubra/Red - Abdomen Description: Tender Hernia Present: Yes Fundal Description: Firm, Midline Fundal Height: u/3 - u/4 Objective-Diagnostic Laboratory: 09/14/16 07:17 09/13/16 09/13/16 09/14/16 21:37 21:37 07:17 WBC 15.3 H 17.7 H RBC 4.16 3.92 Hgb 10.3 L 9.9 L Hct 32.0 L 29.9 L MCV 77 L 76 L MCH 24.8 L 25.1 L MCHC 32.2 33.0 RDW 15.3 H 15.2 H Plt Count 294 269 Seg Neutrophils % 86.5 H Lymphocytes % 8.1 L Monocytes % 4.8 Eosinophils % 0.2 Basophils % 0.4 Absolute Neutrophils 13.3 H Absolute Lymphocytes 1.2 Absolute Monocytes 0.7 Absolute Eosinophils 0.0 Absolute Basophils 0.1 Blood Type O POSITIVE Antibody Screen NEGATIVE Assessment and Plan(PN) - Assessment and Plan (1) Vaginal delivery Is this a current diagnosis for this admission?: Yes (2) Acute blood loss anemia Is this a current diagnosis for this admission?: YesPlan: increase dietary iron ferrous sulfate - Time Spent with Patient Time with patient: Less than 15 minutes Critical Time spent with patient: Less than 15 minutes Medications reviewed and adjusted accordingly: Yes - Disposition Anticipated Discharge: Home Within: within 24 hours
--- NOTE | 2016-09-14 18:00 | L&D General Admission ---
General Admit Datetime Report Generated by CPN: 09/14/2016 18:00 INFORMATION Patient Age: 21 (07/11/2016 22:57:QS system process) EDC: 09/19/2016 00:00 (07/11/2016 23:46:Edie Rossi) : 1 (07/11/2016 23:46:Margie Gomez RN) Para: 0 (07/12/2016 01:46:Edie Rossi) Livin (07/11/2016 23:46:Edie Rossi) Baby, Number in Womb: 1 (07/14/2016 17:54:Margie Gomez RN) CARE Primary Slip Tender: Other-Annotate (07/11/2016 23:46:Edie Rossi) Slip Tender Other: health department (07/11/2016 23:46:Edie Rossi) Height (in): 66 (07/14/2016 16:42:QS system process) ALLERGIES Medication Allergy: No (07/11/2016 23:46:Edie Rossi) Medication Allergies: No Known Allergies (07/14/2016) (07/14/2016 16:42:QS system process) Latex Allergy: No Latex Allergies (07/11/2016 23:46:Edie Rossi) Food Allergies: none (07/11/2016 23:46:Edie Rossi) Environmental Allergies: none (07/11/2016 23:46:Edie Rossi) COMMUNICATION Primary Language: [place] Citizen (07/11/2016 23:46:Edie Rossi) Medical Tx Preferred Language: [place] Citizen (07/11/2016 23:46:Edie Rossi) DEMOGRAPHICS Address: [address] [place] [address] [address], [address] [place] [address] (07/11/2016 22:57:QS system process) Zipcode: [address] (07/11/2016 22:57:QS system process) Home (07/11/2016 22:57:QS system process) SSN: [id number] (07/11/2016 22:57:QS system process) Next of Kin Name: NERIS URIAS (07/11/2016 22:57:QS system process) Next of Kin (07/11/2016 22:57:QS system process) Next of Kin Relationship: OR (07/11/2016 22:57:QS system process) Date of : 1995 (07/11/2016 22:57:QS system process) Marital Status: Single (07/11/2016 22:57:QS system process) Sex: Female (07/11/2016 22:57:QS system process) Race: (07/11/2016 22:57:QS system process) Ethnicity: Non- or (07/11/2016 22:57:QS system process) Yarsani: None (07/11/2016 22:57:QS system process) DRUG AND ALCOHOL USE Alcohol: No (07/11/2016 23:46:Edie Rossi) Marijuana: No (07/11/2016 23:46:Edie Rossi) Cocaine: No (07/11/2016 23:46:Edie Rossi) Other Illicit Drugs: No (07/11/2016 23:46:Edie Rossi) VACCINE HISTORY Influenza Vaccine: No (07/11/2016 23:46:Edie Rossi) Pneumococcal Vaccine: No (07/11/2016 23:46:Edie Rossi) Tetanus Vaccine: No (07/11/2016 23:46:Edie Rossi) Tdap Vaccine: No (07/11/2016 23:46:Edie Rossi) Hepatitis B Vaccine: No (07/11/2016 23:46:Edie Rossi) Feeding Preference: Breast (07/11/2016 23:46:Edie Rossi) Circumcision: Yes (07/11/2016 23:46:Edie Rossi) Classes Attended: No (07/11/2016 23:46:Edie Rossi) Tubal Ligation: No (07/11/2016 23:46:Edie Rossi) Tubal Authorization Signed: N/A (07/11/2016 23:46:Edie Rossi) Consent: N/A (07/11/2016 23:46:Edie Rossi) Consent Signed: N/A (07/11/2016 23:46:Edie Rossi) Pain Management Plans: Medications; Epidural (07/11/2016 23:46:Edie Rossi) Plans for Labor and Delivery: None (07/11/2016 23:46:Edie Rossi) Support Person: Stef (07/11/2016 23:46:Edie Rossi) Support Person Relationship: Significant Other (07/11/2016 23:46:Edie Rossi) Cultural/Spritual Practice: N/A (07/11/2016 23:46:Edie Rossi) Spir/Cult Dietary Needs: N/A (07/11/2016 23:46:Edie Rossi) LIVING SITUATION/DISCHARGE PLAN Living Arrangements: Apartment (07/11/2016 23:46:Edie Rossi) Adequate Access to:: Electric; Heat; Refrigeration; Plumbing/Running water; Phone; Transportation (07/11/2016 23:46:Edie Rossi) WIC Program: No (07/11/2016 23:46:Edie Rossi) Discharge Monkey Trainer Person: Nury other (07/11/2016 23:46:Edie Rossi) Person to Help after Discharge: Stef-sig other (07/11/2016 23:46:Edie Rossi) Specify Current Resource Used: applied for medicaid (07/11/2016 23:46:Edie Rossi) Outside Agency/Sales Apprentice: N/A (07/11/2016 23:46:Edie Rossi) LABS Blood Type: O Positive (07/11/2016 23:46:Edie Rossi) Hemoglobin: 9.9 L (09/14/2016 07:17:QS system process) Hematocrit: 29.9 L (09/14/2016 07:17:QS system process) MCV: 76 L (09/14/2016 07:17:QS system process) Group Beta Strep: positive (07/11/2016 23:46:Erika Tee RN) Chlamydia: Negative (07/11/2016 23:46:Edie Rossi) Hepatitis B: Negative (07/11/2016 23:46:Edie Rossi) OB/PREVIOUS HISTORY Previous Procedures: None (07/11/2016 23:46:Edie Rossi) Current Procedures: Ultrasound (07/11/2016 23:46:Edie Rossi) History of Previous : No (07/11/2016 23:46:Edie Rossi) History of Gestational Diabetes: No (07/11/2016 23:46:Edie Rossi) History of PIH: No (07/11/2016 23:46:Edie Rossi) History of Incompetent Cervix: No (07/11/2016 23:46:Edie Rossi) History of Placenta Previa/Abrup: No (07/11/2016 23:46:Edie Rossi) History of Macrosomia: No (07/11/2016 23:46:Edie Rossi) History of IUGR: No (07/11/2016 23:46:Edie Rossi) History of Hemorrhage: No (07/11/2016 23:46:Edie Rossi) History of Loss/Stillborn: No (07/11/2016 23:46:Edie Rossi) History of : No (07/11/2016 23:46:Edie Rossi) History of D (Rh) Sensitization: No (07/11/2016 23:46:Edie Rossi) History Recurrent Loss/Stillborn: No (07/11/2016 23:46:Edie Rossi) History Depression/PP Depression: No (07/11/2016 23:46:Edie Rossi) History of Uterine Anomaly/JAYLYN: No (07/11/2016 23:46:Edie Rossi) History of Infertility: No (07/11/2016 23:46:Edie Rossi) History of ART Treatment: No (07/11/2016 23:46:Edie Rossi) History of JAYLYN: No (07/11/2016 23:46:Edie Rossi) Comments Obstetrical History: current 2016-anemia (07/11/2016 23:46:Margie Gomez RN) MEDICAL HISTORY Med Hx Diabetes: No (07/11/2016 23:46:Edie Rossi) Med Hx Hypertension: No (07/11/2016 23:46:Edie Rossi) Med Hx Heart Disease: No (07/11/2016 23:46:Edie Rossi) Med Hx Autoimmune Disorder: No (07/11/2016 23:46:Edie Rossi) Med Hx Kidney Disease/UTI: No (07/11/2016 23:46:Edie Rossi) Med Hx Neurologic/Epilepsy: No (07/11/2016 23:46:Edie Rossi) Med Hx Psychiatric Disorders: No (07/11/2016 23:46:Edie Rossi) Med Hx Hepatitis/Liver Disease: No (07/11/2016 23:46:Edie Rossi) Med Hx Varicosities/Phlebitis: No (07/11/2016 23:46:Edie Rossi) Med Hx Thyroid Dysfunction: No (07/11/2016 23:46:Edie Rossi) Med Hx Trauma/Violence: No (07/11/2016 23:46:Edie Rossi) Med Hx Blood Transfusion: No (07/11/2016 23:46:Edie Rossi) Med Hx Pulmonary (Asthma,TB): No (07/11/2016 23:46:Edie Rossi) Med Hx Breast: No (07/11/2016 23:46:Edie Rossi) Med Hx ENTERTAINMENT CENTRE MANAGER Surgery: No (07/11/2016 23:46:Edie Rossi) Med Hx Hospitalization/Surgery: No (07/11/2016 23:46:Edie Rossi) Med Hx Anesthetic Complications: No (07/11/2016 23:46:Edie Rossi) Med Hx Abnormal Pap Smear: No (07/11/2016 23:46:Edie Rossi) Other Medical Diseases: No (07/11/2016 23:46:Edie Rossi) Med Hx Significant Family Hx: No (07/11/2016 23:46:Edie Rossi) Details of Med/Surg Hx: anemia possible heart murmur/cardiac condition - several syncopal episodes (07/11/2016 23:46:Erika Tee RN) INFECTIOUS HISTORY Inf Hx Gonorrhea: No (07/11/2016 23:46:Edie Rossi) Inf Hx Chlamydia: Yes (07/11/2016 23:46:Edie Rossi) Inf Hx Syphilis: No (07/11/2016 23:46:Edie Rossi) Inf Hx HIV/AIDS: No (07/11/2016 23:46:Edie Rossi) Inf Hx Human Papilloma Virus: No (07/11/2016 23:46:Edie Rossi) Inf Hx Pt/Partner Genital Herpes: No (07/11/2016 23:46:Edie Rossi) Inf Hx Tuberculosis/Exposure: No (07/11/2016 23:46:Edie Rossi) Inf Hx Hepatitis B,C: No (07/11/2016 23:46:Edie Rossi) Inf Hx Rash or Viral Illness: No (07/11/2016 23:46:Edie Rossi) Details of Infectious Hx: chlamydia-2012 (07/11/2016 23:46:Edie Rossi) GENETIC HISTORY Gen Hx Age >=35 at RIANNA: No (07/11/2016 23:46:Edie Rossi) Gen Hx Thalassemia: No (07/11/2016 23:46:Edie Rossi) Gen Hx Congenital Heart Defect: No (07/11/2016 23:46:Edie Rossi) Gen Hx Neural Tube Defect: No (07/11/2016 23:46:Edie Rossi) Gen Hx Down's Syndrome: No (07/11/2016 23:46:Edie Rossi) Gen Hx Aram-Sachs: No (07/11/2016 23:46:Edie Rossi) Gen Hx Juwan: No (07/11/2016 23:46:Edie Rossi) Gen Hx Familial Dysautonomia: No (07/11/2016 23:46:Edie Rossi) Gen Hx Sickle Cell Disease/Trait: No (07/11/2016 23:46:Edie Rossi) Gen Hx Hemophilia/Blood Disorder: No (07/11/2016 23:46:Edie Rossi) Gen Hx Muscular Dystrophy: No (07/11/2016 23:46:Edie Rossi) Gen Hx Cystic Fibrosis: No (07/11/2016 23:46:Edie Rossi) Gen Hx Huntingtons Chorea: No (07/11/2016 23:46:Edie Rossi) Gen Hx Mental Retardation/Autism: No (07/11/2016 23:46:Edie Rossi) Gen Hx Tested for Fragile X: No (07/11/2016 23:46:Edie Rossi) Gen Hx Other Inher/Chromosomal: No (07/11/2016 23:46:Edie Rossi) Gen Hx Maternal Metabolic DO: No (07/11/2016 23:46:Edie Rossi) Gen Hx Pt Father or FOB Defect: No (07/11/2016 23:46:Edie Rossi) Gen Hx Other Genetic History: No (07/11/2016 23:46:Edie Rossi) Gen Hx Drugs/Meds since LMP: No (07/11/2016 23:46:Edie Rossi)
[2016-09-15] MEDS: IBUPROFEN 800 MG TABLET PO SCH ×3 (00:24→15:48)
--- NOTE | 2016-09-15 06:00 | L&D Current Admission ---
Current Admit Datetime Report Generated by CPN: 09/15/2016 06:00 ADMISSION INFORMATION Current Admit Date/Time: 09/13/2016 20:45 (09/13/2016 10:01:Edie Rossi) Reason for Admission: Onset of Labor (09/13/2016 10:01:Edie Rossi) Chief Complaint: Contractions (09/13/2016 10:01:SN Mandie) EGA per Dates: 39.1 (09/13/2016 10:01:QS system process) Method of Arrival: Wheelchair (09/13/2016 10:01:Edie Rossi) Admitted From: Home (09/13/2016 10:01:Edie Rossi) Records Available: Yes (09/13/2016 10:01:Edie Rossi) General Admission Information: Reviewed (09/13/2016 10:01:Edie Rossi) General Admission Reviewed By: Edison Rossi RN (09/13/2016 10:01:Edie Rossi) BELONGINGS/ADVANCED DIRECTIVES Other Belongings: see consent sheet (09/13/2016 10:01:Edie Rossi) LEARNING ASSESSMENT Knowledge Level: Understands L_D Process (09/13/2016 10:01:Edie Rossi) Barriers to Learning: None (09/13/2016 10:01:Edie Rossi) Learning Readiness: Motivated (09/13/2016 10:01:Edie Rossi) Learns Best By: 1 to 1 Instruction (09/13/2016 10:01:Edie Rossi) Learning Needs: Labor and Delivery Process (09/13/2016 10:01:Edie Rossi) DOMESTIC VIOLANCE SCREENING Dom Viol Threatened/Hurt: No (09/13/2016 10:01:Edie Rossi) Hx of Abuse/Neglect past 2yrs: No (09/13/2016 10:01:Edie Rossi) Feel Unsafe Going Home: No (09/13/2016 10:01:Edie Rossi) Addt'l Observ Indicating Abuse: No (09/13/2016 10:01:Edie Rossi) Reason Unable to Complete Screen: N/A, Screen Completed (09/13/2016 10:01:Edie Rossi) Considered Personal Harm/Suicide: No (09/13/2016 10:01:Edie Rossi) NUTRITIONAL/FUNCTIONAL SCREENING Problem with Appetite >5 Days: No (09/13/2016 10:01:Edie Rossi) Chew/Swallow Difficulties: No (09/13/2016 10:01:Edie Rossi) Inappropriate Wt Gain/Loss: No (09/13/2016 10:01:Edie Rossi) Presence Skin Breakdown/Ulcer: No (09/13/2016 10:01:Edie Rossi) Special Diet: No (09/13/2016 10:01:Edie Rossi) Pt Requests Customer Engagement Manager Visit: No (09/13/2016 10:01:Edie Rossi) Hx of Any of the Following?: N/A (09/13/2016 10:01:Edie Rossi) New Diagnosis of: N/A (09/13/2016 10:01:Edie Rossi) Requires Assist w/Ambulation: No (09/13/2016 10:01:Edie Rossi) Uses Assist Device to Ambulate: No (09/13/2016 10:01:Edie Rossi) Pt Requires Help w/ADL's: No (09/13/2016 10:01:Edie Rossi)
--- NOTE | 2016-09-15 06:00 | L&D General Admission ---
General Admit Datetime Report Generated by CPN: 09/15/2016 06:00 INFORMATION Patient Age: 21 (07/11/2016 22:57:QS system process) EDC: 09/19/2016 00:00 (07/11/2016 23:46:Edie Rossi) : 1 (07/11/2016 23:46:Margie Gomez RN) Para: 0 (07/12/2016 01:46:Edie Rossi) Livin (07/11/2016 23:46:Edie Rossi) Baby, Number in Womb: 1 (07/14/2016 17:54:Margie Gomez RN) CARE Primary Alarm Technician: Other-Annotate (07/11/2016 23:46:Edie Rossi) Alarm Technician Other: health department (07/11/2016 23:46:Edie Rossi) Height (in): 66 (07/14/2016 16:42:QS system process) ALLERGIES Medication Allergy: No (07/11/2016 23:46:Edie Rossi) Medication Allergies: No Known Allergies (07/14/2016) (07/14/2016 16:42:QS system process) Latex Allergy: No Latex Allergies (07/11/2016 23:46:Edie Rossi) Food Allergies: none (07/11/2016 23:46:Edie Rossi) Environmental Allergies: none (07/11/2016 23:46:Edie Rossi) COMMUNICATION Primary Language: [place] (07/11/2016 23:46:Edie Rossi) Medical Tx Preferred Language: [place] (07/11/2016 23:46:Edie Rossi) DEMOGRAPHICS Address: [address] [place] [address] RD, [address] [place] [address] (07/11/2016 22:57:QS system process) Zipcode: [address] (07/11/2016 22:57:QS system process) Home (07/11/2016 22:57:QS system process) SSN: [id number] (07/11/2016 22:57:QS system process) Next of Kin Name: NERIS URIAS (07/11/2016 22:57:QS system process) Next of Kin (07/11/2016 22:57:QS system process) Next of Kin Relationship: OR (07/11/2016 22:57:QS system process) Date of : 1995 (07/11/2016 22:57:QS system process) Marital Status: Single (07/11/2016 22:57:QS system process) Sex: Female (07/11/2016 22:57:QS system process) Race: (07/11/2016 22:57:QS system process) Ethnicity: Non- or (07/11/2016 22:57:QS system process) Baptism: None (07/11/2016 22:57:QS system process) DRUG AND ALCOHOL USE Alcohol: No (07/11/2016 23:46:Edie Rossi) Marijuana: No (07/11/2016 23:46:Edie Rossi) Cocaine: No (07/11/2016 23:46:Edie Rossi) Other Illicit Drugs: No (07/11/2016 23:46:Edie Rossi) VACCINE HISTORY Influenza Vaccine: No (07/11/2016 23:46:Edie Rossi) Pneumococcal Vaccine: No (07/11/2016 23:46:Edie Rossi) Tetanus Vaccine: No (07/11/2016 23:46:Edie Rossi) Tdap Vaccine: No (07/11/2016 23:46:Edie Rossi) Hepatitis B Vaccine: No (07/11/2016 23:46:Edie Rossi) Feeding Preference: Breast (07/11/2016 23:46:Edie Rossi) Circumcision: Yes (07/11/2016 23:46:Edie Rossi) Classes Attended: No (07/11/2016 23:46:Edie Rossi) Tubal Ligation: No (07/11/2016 23:46:Edie Rossi) Tubal Authorization Signed: N/A (07/11/2016 23:46:Edie Rossi) Consent: N/A (07/11/2016 23:46:Edie Rossi) Consent Signed: N/A (07/11/2016 23:46:Edie Rossi) Pain Management Plans: Medications; Epidural (07/11/2016 23:46:Edie Rossi) Plans for Labor and Delivery: None (07/11/2016 23:46:Edie Rossi) Support Person: Stef (07/11/2016 23:46:Edie Rossi) Support Person Relationship: Significant Other (07/11/2016 23:46:Edie Rossi) Cultural/Spritual Practice: N/A (07/11/2016 23:46:Edie Rossi) Spir/Cult Dietary Needs: N/A (07/11/2016 23:46:Edie Rossi) LIVING SITUATION/DISCHARGE PLAN Living Arrangements: Apartment (07/11/2016 23:46:Edie Rossi) Adequate Access to:: Electric; Heat; Refrigeration; Plumbing/Running water; Phone; Transportation (07/11/2016 23:46:Edie Rossi) WIC Program: No (07/11/2016 23:46:Edie Rossi) Discharge Provider Relations Manager Person: Nury other (07/11/2016 23:46:Edie Rossi) Person to Help after Discharge: Stef-sig other (07/11/2016 23:46:Edie Rossi) Specify Current Resource Used: applied for medicaid (07/11/2016 23:46:Edie Rossi) Outside Agency/Storekeeper Engineering: N/A (07/11/2016 23:46:Edie Rossi) LABS Blood Type: O Positive (07/11/2016 23:46:Edie Rossi) Hemoglobin: 9.9 L (09/14/2016 07:17:QS system process) Hematocrit: 29.9 L (09/14/2016 07:17:QS system process) MCV: 76 L (09/14/2016 07:17:QS system process) Group Beta Strep: positive (07/11/2016 23:46:Erika Tee RN) Chlamydia: Negative (07/11/2016 23:46:Edie Rossi) Hepatitis B: Negative (07/11/2016 23:46:Edie Rossi) OB/PREVIOUS HISTORY Previous Procedures: None (07/11/2016 23:46:Edie Rossi) Current Procedures: Ultrasound (07/11/2016 23:46:Edie Rossi) History of Previous : No (07/11/2016 23:46:Edie Rossi) History of Gestational Diabetes: No (07/11/2016 23:46:Edie Rossi) History of PIH: No (07/11/2016 23:46:Edie Rossi) History of Incompetent Cervix: No (07/11/2016 23:46:Edie Rossi) History of Placenta Previa/Abrup: No (07/11/2016 23:46:Edie Rossi) History of Macrosomia: No (07/11/2016 23:46:Edie Rossi) History of IUGR: No (07/11/2016 23:46:Edie Rossi) History of Hemorrhage: No (07/11/2016 23:46:Edie Rossi) History of Loss/Stillborn: No (07/11/2016 23:46:Edie Rossi) History of : No (07/11/2016 23:46:Edie Rossi) History of D (Rh) Sensitization: No (07/11/2016 23:46:Edie Rossi) History Recurrent Loss/Stillborn: No (07/11/2016 23:46:Edie Rossi) History Depression/PP Depression: No (07/11/2016 23:46:Edie Rossi) History of Uterine Anomaly/JAYLYN: No (07/11/2016 23:46:Edie Rossi) History of Infertility: No (07/11/2016 23:46:Edie Rossi) History of ART Treatment: No (07/11/2016 23:46:Edie Rossi) History of JAYLYN: No (07/11/2016 23:46:Edie Rossi) Comments Obstetrical History: current 2016-anemia (07/11/2016 23:46:Margie Gomez RN) MEDICAL HISTORY Med Hx Diabetes: No (07/11/2016 23:46:Edie Rossi) Med Hx Hypertension: No (07/11/2016 23:46:Edie Rossi) Med Hx Heart Disease: No (07/11/2016 23:46:Edie Rossi) Med Hx Autoimmune Disorder: No (07/11/2016 23:46:Edie Rossi) Med Hx Kidney Disease/UTI: No (07/11/2016 23:46:Edie Rossi) Med Hx Neurologic/Epilepsy: No (07/11/2016 23:46:Edie Rossi) Med Hx Psychiatric Disorders: No (07/11/2016 23:46:Edie Rossi) Med Hx Hepatitis/Liver Disease: No (07/11/2016 23:46:Edie Rossi) Med Hx Varicosities/Phlebitis: No (07/11/2016 23:46:Edie Rossi) Med Hx Thyroid Dysfunction: No (07/11/2016 23:46:Edie Rossi) Med Hx Trauma/Violence: No (07/11/2016 23:46:Edie Rossi) Med Hx Blood Transfusion: No (07/11/2016 23:46:Edie Rossi) Med Hx Pulmonary (Asthma,TB): No (07/11/2016 23:46:Edie Rossi) Med Hx Breast: No (07/11/2016 23:46:Edie Rossi) Med Hx PIANO PLAYER Surgery: No (07/11/2016 23:46:Edie Rossi) Med Hx Hospitalization/Surgery: No (07/11/2016 23:46:Edie Rossi) Med Hx Anesthetic Complications: No (07/11/2016 23:46:Edie Rossi) Med Hx Abnormal Pap Smear: No (07/11/2016 23:46:Edie Rossi) Other Medical Diseases: No (07/11/2016 23:46:Edie Rossi) Med Hx Significant Family Hx: No (07/11/2016 23:46:Edie Rossi) Details of Med/Surg Hx: anemia possible heart murmur/cardiac condition - several syncopal episodes (07/11/2016 23:46:Erika Tee RN) INFECTIOUS HISTORY Inf Hx Gonorrhea: No (07/11/2016 23:46:Edie Rossi) Inf Hx Chlamydia: Yes (07/11/2016 23:46:Edie Rossi) Inf Hx Syphilis: No (07/11/2016 23:46:Edie Rossi) Inf Hx HIV/AIDS: No (07/11/2016 23:46:Edie Rossi) Inf Hx Human Papilloma Virus: No (07/11/2016 23:46:Edie Rossi) Inf Hx Pt/Partner Genital Herpes: No (07/11/2016 23:46:Edie Rossi) Inf Hx Tuberculosis/Exposure: No (07/11/2016 23:46:Edie Rossi) Inf Hx Hepatitis B,C: No (07/11/2016 23:46:Edie Rossi) Inf Hx Rash or Viral Illness: No (07/11/2016 23:46:Edie Rossi) Details of Infectious Hx: chlamydia-2012 (07/11/2016 23:46:Edie Rossi) GENETIC HISTORY Gen Hx Age >=35 at RIANNA: No (07/11/2016 23:46:Edie Rossi) Gen Hx Thalassemia: No (07/11/2016 23:46:Edie Rossi) Gen Hx Congenital Heart Defect: No (07/11/2016 23:46:Edie Rossi) Gen Hx Neural Tube Defect: No (07/11/2016 23:46:Edie Rossi) Gen Hx Down's Syndrome: No (07/11/2016 23:46:Edie Rossi) Gen Hx Aram-Sachs: No (07/11/2016 23:46:Edie Rossi) Gen Hx Juwan: No (07/11/2016 23:46:Edie Rossi) Gen Hx Familial Dysautonomia: No (07/11/2016 23:46:Edie Rossi) Gen Hx Sickle Cell Disease/Trait: No (07/11/2016 23:46:Edie Rossi) Gen Hx Hemophilia/Blood Disorder: No (07/11/2016 23:46:Edie Rossi) Gen Hx Muscular Dystrophy: No (07/11/2016 23:46:Edie Rossi) Gen Hx Cystic Fibrosis: No (07/11/2016 23:46:Edie Rossi) Gen Hx Huntingtons Chorea: No (07/11/2016 23:46:Edie Rossi) Gen Hx Mental Retardation/Autism: No (07/11/2016 23:46:Edie Rossi) Gen Hx Tested for Fragile X: No (07/11/2016 23:46:Edie Rossi) Gen Hx Other Inher/Chromosomal: No (07/11/2016 23:46:Edie Rossi) Gen Hx Maternal Metabolic DO: No (07/11/2016 23:46:Edie Rossi) Gen Hx Pt Father or FOB Defect: No (07/11/2016 23:46:Edie Rossi) Gen Hx Other Genetic History: No (07/11/2016 23:46:Edie Rossi) Gen Hx Drugs/Meds since LMP: No (07/11/2016 23:46:Edie Rossi)
[2016-09-15 09:13] VITALS: BP 123/66
--- NOTE | 2016-09-15 09:50 | PDOC DISCHARGE SUMMARY ---
Final Diagnosis Discharge Date: 09/15/16 - Final Diagnosis (1) Acute blood loss anemia Is this a current diagnosis for this admission?: Yes (2) Vaginal delivery Is this a current diagnosis for this admission?: Yes Discharge Data - Discharge Medication Home Medications: Vit/Iron Fumarate/FA [ Tablet] 1 tab PO DAILY 07/11/16 Pnv with Ca,No.72/Iron,Carb/FA [ Plus Iron Tablet] 1 each PO DAILY #30 tablet 07/31/16 Procedures: None Intrapartum Procedure(s): Spontaneous Vaginal Delivery Laceration-Degree: 4th - Diagnosis Test Laboratory: Temp Pulse Resp BP Pulse Ox 98.2 F 84 14 124/78 100 09/15/16 09:02 09/15/16 09:02 09/15/16 09:02 09/15/16 09:02 09/15/16 09:02 09/13/16 09/14/16 21:37 07:17 RBC 4.16 3.92 Hgb 10.3 L 9.9 L Hct 32.0 L 29.9 L - Discharge information/Instructions Discharge Activity: Activity As Tolerated, No Driving, No Lifting Over 10 Pounds , Pelvic Rest, No tub bath Discharge Diet: Regular Disposition: HOME, SELF-CARE Follow up with: [facility] in: 4
[2016-09-15] MEDS: SENNOSIDES/DOCUSATE 8.6-50 MG 1 EACH TABLET PO SCH (10:39)
[2016-09-15] MEDS: FERROUS SULFATE 325 MG TABLET PO SCH ×2 (10:39→17:47)
[2016-09-15] MEDS: PRENATAL VITAMIN W-O CA NO5/FE FUMARATE/FA CAPSULE PO SCH (10:39)
[2016-09-15] MEDS: DOCUSATE SODIUM 100 MG CAPSULE PO SCH ×2 (10:39→17:47)
== END 2016-09-15 21:18 | disposition home or self-care (01) | DRG 775 ==
LOC: LC 20:46 → LR 20:55 → 2S 23:03
PROVIDERS: ADMIT Obstetrics & Gynecology; ATTEND Obstetrics & Gynecology
PROC: 10E0XZZ Delivery of Products of Conception, External Approach (ICD-10-PCS; principal; 2016-09-13)
PROC: 0KQM0ZZ Repair Perineum Muscle, Open Approach (ICD-10-PCS; 2016-09-13)
PROC: 10907ZC Drainage of Amniotic Fluid, Therapeutic from Products of Conception, Via Natural or Artificial Opening (ICD-10-PCS; 2016-09-13)
PROC: 4A1HXCZ Monitoring of Products of Conception, Cardiac Rate, External Approach (ICD-10-PCS; 2016-09-13)
DX: O99.824 Streptococcus B carrier state complicating childbirth (principal); D62 Acute posthemorrhagic anemia; O99.02 Anemia complicating childbirth; O70.1 Second degree perineal laceration during delivery; O62.3 Precipitate labor; O69.1XX0 Labor and delivery complicated by cord around neck, with compression, not applicable or unspecified; Z28.21 Immunization not carried out because of patient refusal; Z3A.39 39 weeks gestation of pregnancy; Z37.0 Single live birth
CPT/HCPCS: 36415; 85025; 85027; 86592; 86850; 86900; 86901; J2590; J3490